=== PATIENT | female | born 2000 | race African-American/Black ===

== ENCOUNTER 2021-07-01 08:00 | Day surgery (SDC) | payer MEDICAID ==
[~2021-07-01 08:00] MED LIST: ceFAZolin/Water 2 GM/20 ML 2 GM/20 ML SYRINGE IV NR
[2021-07-01] MEDS ORDERED: ALPRAZolam 1 MG TAB ONE (08:54)
[2021-07-01] MEDS ORDERED: HYDROmorphone 1 MG/1 ML INJ IV PRN ×2 (08:55)
[2021-07-01] MEDS ORDERED: ALPRAZolam 1 MG TAB PO NR (08:55)
[2021-07-01] MEDS ORDERED: ONDANSETRON 4 MG/2 ML INJ IV PRN (08:55)
--- NOTE | 2021-07-01 08:56 | Anesthesia Day of Surgery ---
Anesthesia Day of Surgery - Day of Surgery Patient Examined: Yes Patient H&P Reviewed: Yes Patient is NPO: Yes
--- NOTE | 2021-07-01 08:58 | Anesthesia Consultation ---
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
[2021-07-01] MEDS ORDERED: LACTATED RINGERS 1,000 ML IV SCH (09:00)
[2021-07-01] MEDS ORDERED: BUPIVACAINE/PF (0.5%) 5 MG/1 ML 30 ML VIAL INFILTRATI ONE ×2 (10:06→10:52)
[2021-07-01] MEDS ORDERED: LIDOCAINE 1%/EPINEPHRINE 1:100,000 VIAL (20 ML) INFILTRATI ONE ×2 (10:06→10:52)
[2021-07-01] MEDS ORDERED: fentaNYL 100 MCG/2 ML INJ ONE (10:21)
[2021-07-01] MEDS ORDERED: ePHEDrine SULFATE 50 MG/1 ML INJ ONE (10:41)
[2021-07-01] MEDS ORDERED: LIDOCAINE MPF (2%) 20 MG/1 ML VIAL 5 ML ONE (10:45)
[2021-07-01] MEDS ORDERED: dexAMETHasone 20 MG/5 ML VIAL ONE (10:45)
[2021-07-01] MEDS ORDERED: ONDANSETRON 4 MG/2 ML INJ ONE (10:45)
[2021-07-01] MEDS ORDERED: SODIUM CHLORIDE 0.9% IRR 1,500 ML BOTTLE IR ONE (10:52)
[2021-07-01] MEDS ORDERED: WATER FOR IRRIG STERILE 1,500 ML BOTTLE IR ONE (11:12)
[2021-07-01] MEDS ORDERED: propofoL 200 MG/20 ML VIAL IV ONE (12:03)
--- NOTE | 2021-07-01 12:09 | Short Stay Summary ---
Short Stay Documentation Date of service: 07/01/21 - History Principal diagnosis: Right neck lymphadenopathy H&P: obtained from office - Allergies and Medications Current Medications: Allergies No Known Allergies Allergy (Verified 06/24/21 12:00) Home Medications Medication Instructions Recorded Confirmed Last Taken Type Oxybutynin [Ditropan] 10 mg PO DAILY 06/24/21 07/01/21 06/29/21 09:00 History Active Medications Hydromorphone HCl (Hydromorphone 1 Mg/1 Ml Inj) 0.25 mg IV Q10MIN PRN PRN Reason: Pain, Moderate (4-6) Stop: 07/01/21 20:00 Hydromorphone HCl (Hydromorphone 1 Mg/1 Ml Inj) 0.5 mg IV Q10MIN PRN PRN Reason: Pain , Severe (7-10) Stop: 07/01/21 20:00 Cefazolin Sodium (Ancef/Sterile Water 2 Gm/20 Ml) 2 gm in 20 mls @ 80 mls/hr IV PREOP NR; Protocol Stop: 07/01/21 23:00 Lactated Ringer's (Lactated Ringers) 1,000 mls @ 100 mls/hr IV DIRECT ANTONY Last Admin: 07/01/21 09:35 Dose: 100 mls/hr - Physical exam General appearance: no acute distress Integumentary: no rash HEENT: Atraumatic Lungs: Clear to auscultation Heart: Regular rate Gastrointestinal: normal Extremities: no ischemia Neurological: Normal gait, Normal speech - Brief post op/procedure progress note Date of procedure: 07/01/21 Pre-op diagnosis: Right neck lymphadenopathy Post-op diagnosis: same Procedure: Excisional biopsy lymphadenopathy right neck Anesthesia: GETA Surgeon: ADELAIDE SUAREZ Estimated blood loss: minimal Pathology: list (3 cm lymph node from the right neck supraclavicular area) - Disposition Condition at discharge: Good Disposition: 01 HOME / SELF CARE / HOMELESS Short Stay Discharge Plan Weight Bearing Status: Full Weight Bearing Diet: regular Wound: open to air Follow up with: RAY MACKEY NP-C [Primary Care Provider] - 7 Days
--- NOTE | 2021-07-01 12:20 | Operative Report ---
Operative Report Operative Report: Date of procedure: 07/01/2021 Preop diagnosis: Right neck lymphadenopathy Postop diagnosis: Same Procedure: Open biopsy lymphadenopathy right neck supraclavicular area Surgeon: Dr. Valdes Anesthesia: LMA general Estimated blood loss: Minimal Specimen: 3 cm lymph node right neck supraclavicular area Findings: The patient is taken to the OR for open biopsy of a supraclavicular lymph node. Timeouts and consents are on the chart. Patient received Ancef IV. She is in a supine position with the head of the bed elevated. The area is prepped with ChloraPrep and draped in a sterile fashion. The area is infiltrated with 1% lidocaine and half percent Marcaine mixed 50-50. #15 scalpel was used to make a 4 cm incision in the supraclavicular area. Electrocautery was used to for the blunt dissection. The lymph node is just deep to the platysmas layer. It is slowly dissected free of the surrounding attachments. Hilar structures are clipped with hemoclips. The wound is irrigated with saline followed by sterile water. Hemostasis is good. The wound is closed with a 4-0 Vicryl to the platysmas layer and a 4-0 Monocryl to the skin followed by Dermabond.
--- NOTE | 2021-07-01 12:56 | Post Anesthesia Evaluation ---
- Post Anesthesia Evaluation Patient Participated: Yes Airway Patent: Yes Stable Respiratory Function: Yes Nausea/Vomiting: No Temp > 96.8F: Yes Pain Manageable: Yes Adequeate Hydration: Yes Anesthesia Complications: No Block Receding Appropriately: Not Applicable Patient on Ventilator: No
[2021-07-01 15:11] VITALS: BP 139/76
== END 2021-07-01 08:01 | disposition home or self-care (01) ==
LOC: OR 08:00
PROVIDERS: ATTEND Surgery
DX: R59.1 Generalized enlarged lymph nodes (principal); Z79.899 Other long term (current) drug therapy; Z98.890 Other specified postprocedural states
CPT/HCPCS: 38510; 81025; 88184; 88185; 88305; 88341; 88342; J0690; J1100; J2405; J2704; J3010; J3490; J7120